=== PATIENT | female | born 1990 | race Caucasian/White ===

== ENCOUNTER 2017-02-26 10:23 | Outpatient (CLI) | payer MEDICAID ==
[2017-02-26 13:11] LABS: BASOPHILS % (AUTO) 0.5 %; EOSINOPHILS # (AUTO) 0.1 10^3/uL (0.0-0.7); EOSINOPHILS % (AUTO) 1.4 %; HCT - HEMATOCRIT 39.2 % (37.0-47.0); HGB - HEMOGLOBIN 13.5 g/dL (12.0-16.0); LYMPHOCYTES # (AUTO) 2.6 10^3/uL (1.5-3.5); LYMPHOCYTES % (AUTO) 38.1 %; MEAN CORPUSCULAR HEMOGLOBIN 30.2 pg (27.0-31.0); MEAN CORPUSCULAR HGB CONC 34.5 g/dL (32.0-36.0); MEAN CORPUSCULAR VOLUME 87.7 fL (81.0-99.0); MEAN PLATELET VOLUME 8.8 fL (7.9-10.8); MONOCYTES # (AUTO) 0.3 10^3/uL (0.0-1.0); MONOCYTES % (AUTO) 4.1 %; NEUTROPHILS # (AUTO) 3.7 10^3/uL (1.5-6.6); NEUTROPHILS % (AUTO) 55.9 %; RED BLOOD COUNT 4.47 10^6/uL (4.20-5.40); RED CELL DISTRIBUTION WIDTH 13.1 % (12.0-15.0); UNCORRECTED WHITE BLOOD COUNT 6.7 x10^3/uL; WHITE BLOOD COUNT 6.7 x10^3/uL (4.8-10.8)
[2017-02-26 13:20] LABS: ALBUMIN/GLOBULIN RATIO 1.3 (1.0-2.2); BILIRUBIN,TOTAL 0.7 mg/dL (0.2-1.0); CALCIUM 9.2 mg/dL (8.5-10.3); CREATININE 0.8 mg/dL (0.4-1.0); POTASSIUM 3.8 mmol/L (3.5-5.0); TOTAL PROTEIN 7.5 g/dL (6.7-8.2)
[2017-02-27 10:11] LABS: TEST RESULT REPORT (())
== END 2017-02-26 10:24 | disposition home or self-care (01) ==
LOC: LAB.N 10:23
PROVIDERS: ATTEND Physician Assistant
DX: Z11.3 Encounter for screening for infections with a predominantly sexual mode of transmission (principal)
CPT/HCPCS: 36415; 80053; 81599; 84443; 85025; 86803; 87389; 87491; 87591

== ENCOUNTER 2017-03-26 13:11 | Outpatient (CLI) | payer MEDICAID ==
--- NOTE | 2017-03-26 17:33 | Ultrasound Report ---
PELVIC ULTRASOUND: 03/26/2017 CLINICAL INDICATION: Pain. TECHNIQUE: Transabdominal pelvic ultrasound performed for global evaluation. Transvaginal pelvic ult rasound performed for detailed evaluation. Real-time scanning performed and static images obtained. FINDINGS: The uterus is anteverted, measuring 7.6 x 4.2 x 2.1 cm. The endometrial echo complex blanca ures 2 mm. The ovaries are normal, with the right measuring 2.2 x 1.1 x 0.9 cm, and the left measuri ng 2.3 x 2.1 x 1.2 cm. Trace free fluid is present in the cul-de-sac. IMPRESSION: NORMAL PELVIC ULTRASOUND. JOB #: [id number] EXT JOB #:[id number]
== END 2017-03-26 13:12 | disposition home or self-care (01) ==
LOC: DI 13:11
PROVIDERS: ATTEND Nurse Practitioner Gerontology
DX: R10.2 Pelvic and perineal pain (principal)
CPT/HCPCS: 76830; 76856

== ENCOUNTER 2017-07-13 13:35 | Emergency (ER) | payer MEDICAID ==
[2017-07-13 13:46] VITALS: BP 124/75
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
[2017-07-13 14:20] LABS: MUDS CUTOFF CONCENTRATIONS CUTOFF CONC BELOW:
[2017-07-13 14:46] LABS: AMPHETAMINE SCREEN,URINE NEGATIVE (NEGATIVE); BENZODIAZEPINES SCREEN, URINE NEGATIVE (NEGATIVE); COCAINE SCREEN URINE NEGATIVE (NEGATIVE); METHADONE SCREEN, URINE NEGATIVE (NEGATIVE); METHAMPHETAMINES SCREEN, URINE NEGATIVE (NEGATIVE); OPIATE SCREEN, URINE NEGATIVE (NEGATIVE); OXYCODONE SCREEN, URINE NEGATIVE (NEGATIVE); PROPOXYPHENE SCREEN, URINE NEGATIVE (NEGATIVE); TRICYCLIC ANTIDEPRESSANT,URINE NEGATIVE (NEGATIVE)
== END 2017-07-13 14:54 | disposition home or self-care (01) ==
LOC: ED 13:35
DX: R40.0 Somnolence (principal); T88.7XXA Unspecified adverse effect of drug or medicament, initial encounter
CPT/HCPCS: 80306; 99282; 99283

== ENCOUNTER 2018-09-10 20:39 | Emergency (ER) | payer MEDICAID ==
[2018-09-10] MEDS ORDERED: DEXAMETHASONE 10 MG/ML VIAL PO STA (21:34)
[2018-09-10] MEDS ORDERED: KETOROLAC 60 MG/2 ML VIAL IM STA (21:34)
[2018-09-10] MEDS ORDERED: KETOROLAC 30 MG/ML VIAL IVP STA (21:37)
--- NOTE | 2018-09-10 21:37 | ED Physician Documentation ---
PD HPI CHEST PAIN - Stated complaint Stated Complaint: CP - Chief complaint Chief Complaint: Resp - History obtained from History obtained from: Patient - History of Present Illness Timing - onset: Enter time (0800), Today Timing - onset during: Rest Timing - duration: Hours Timing - details: Abrupt onset, Still present Quality: Pressure, Sharp, Pain Location: Substernal Radiation: Back Improved by: Rest Worsened by: Inspiration Associated symptoms: Shortness of air. No: Diaphoresis, Nausea, Vomiting, Feeling faint / dizzy Similar symptoms before: Has not had sx before Recently seen: Not recently seen - Additional information Additional information: 27-year-old female awoke this morning with a cough and congestion and she had chest pain associated with this this morning. She states that she was able to get up and go to work. At 6 PM she took some DayQuil to try to relieve her symptoms did not get any relief with this she is come to the emergency department now with severe pain with each breath that she takes and she has become anxious with this. Review of Systems Constitutional: denies: Fever, Chills, Myalgias Eyes: denies: Decreased vision Ears: denies: Ear pain Nose: reports: Congestion. denies: Rhinorrhea / runny nose Throat: denies: Sore throat Cardiac: reports: Chest pain / pressure. denies: Palpitations, Pedal edema, Calf pain Respiratory: reports: Dyspnea, Cough GI: denies: Abdominal Pain, Nausea, Vomiting : denies: Dysuria, Frequency Skin: denies: Rash Musculoskeletal: denies: Neck pain, Back pain, Extremity pain Neurologic: denies: Generalized weakness, Focal weakness, Numbness PD PAST MEDICAL HISTORY - Past Medical History Past Medical History: Yes Cardiovascular: None Respiratory: None Endocrine/Autoimmune: None GI: None : None HEENT: None Psych: None Musculoskeletal: None Derm: None - Past Surgical History Past Surgical History: No - Present Medications Home Medications: Ambulatory Orders Medication Instructions Recorded Confirmed Ciprofloxacin HCl [Cipro] 500 mg PO BID 7 Days tablet 05/17/15 Metronidazole [Flagyl] 500 mg PO TID 7 Days tablet 05/17/15 Hydrocodone/Acetaminophen 1 - 2 each PO Q6H PRN #14 tablet 09/10/18 [Hydrocodon-Acetaminophen 5-325] - Allergies Allergies/Adverse Reactions: Allergies Allergy/AdvReac Type Severity Reaction Status Date / Time No Known Drug Allergies Allergy Verified 09/10/18 20:43 - Social History Does the pt smoke?: No Smoking Status: Never smoker Does the pt drink ETOH?: No Does the pt have substance abuse?: No - Immunizations Immunizations are current?: Yes - POLST Patient has POLST: No PD ED PE NORMAL - Vitals Vital signs reviewed: Yes (tachy) - General General: Alert and oriented X 3, Well developed/nourished, Other (appears to be in pain with each breath.) - HEENT HEENT: Atraumatic, PERRL, EOMI, Ears normal, Moist mucous membranes, Pharynx benign - Neck Neck: Supple, no meningeal sign, No bony TTP - Cardiac Cardiac: No murmur, Other (tachy to 120) - Respiratory Respiratory: Clear bilaterally, Other (tachypneic) - Abdomen Abdomen: Soft, Non tender - Back Back: No CVA TTP, No spinal TTP - Derm Derm: Normal color, Warm and dry, No rash - Extremities Extremities: No deformity, No edema - Neuro Neuro: Alert and oriented X 3, 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, No motor deficit, No sensory deficit, Normal speech Eye Opening: Spontaneous Motor: Obeys Commands Verbal: Oriented GCS Score: 15 - Psych Psych: Normal mood, Normal affect Results - Vitals Vitals: Vital Signs - 24 hr 09/10/18 09/10/18 09/10/18 20:40 20:57 21:57 Temperature 37.4 C Heart Rate 131 H 119 H 99 Respiratory 28 H 24 27 H Rate Blood Pressure 129/83 H 122/89 H O2 Saturation 98 100 100 09/10/18 23:00 Temperature Heart Rate 97 Respiratory 12 Rate Blood Pressure 132/84 H O2 Saturation 97 Oxygen O2 Source Room air - EKG (time done) 2300 Rate: Rate (enter#) (95) Rhythm: NSR (95) Ischemia: Normal ST segments Compare to prior EKG: Old EKG unavailable Computer interpretation: Agree with computer - Labs Labs: Laboratory Tests 09/10/18 09/10/18 09/10/18 21:00 21:00 21:00 WBC 7.1 RBC 4.26 Hgb 12.6 Hct 36.5 L MCV 85.8 MCH 29.6 MCHC 34.5 RDW 13.4 Plt Count 231 MPV 8.8 Neut # (Auto) 5.8 Lymph # (Auto) 0.9 L [place] # (Auto) 0.4 Eos # (Auto) 0.0 Baso # (Auto) 0.0 Absolute Nucleated RBC 0.00 Nucleated RBC % 0.0 D-Dimer Sodium 135 Potassium 3.3 L Chloride 102 Carbon Dioxide 19 L Anion Gap 14.0 H BUN 7 Creatinine 0.8 Estimated GFR (MDRD) 87 L Glucose 98 Calcium 9.2 Total Bilirubin 0.7 AST 26 ALT 20 Alkaline Phosphatase 42 Troponin I < 0.04 Total Protein 7.9 Albumin 4.2 Globulin 3.7 Albumin/Globulin Ratio 1.1 Lipase 24 09/10/18 21:00 WBC RBC Hgb Hct MCV MCH MCHC RDW Plt Count MPV Neut # (Auto) Lymph # (Auto) [place] # (Auto) Eos # (Auto) Baso # (Auto) Absolute Nucleated RBC Nucleated RBC % D-Dimer < 200.0 L Sodium Potassium Chloride Carbon Dioxide Anion Gap BUN Creatinine Estimated GFR (MDRD) Glucose Calcium Total Bilirubin AST ALT Alkaline Phosphatase Troponin I Total Protein Albumin Globulin Albumin/Globulin Ratio Lipase - Rads (name of study) 2 veiw chest Radiology: Prelim report reviewed (Impression: Normal two-view chest radiography.), EMP read indepedently, See rad report Procedures - IVC sono (time) 2248 Bedside IVC sono: IVC measures (cm) (1.09), IVC collapsed c insp (cm) (com plete), Dehydration (est 1 liter deficit) PD MEDICAL DECISION MAKING - ED course Complexity details: reviewed old records, reviewed results, re-evaluated patient, considered differential, d/w patient, d/w family ED course: 27-year-old female presented to the emergency department with acute substernal chest pain with respiration and she presents with significant pain and she is tachycardic. She has only one risk factor for pulmonary embolism and that is consumption of control pill. She is tachycardic she has normal saturation and her d-dimer is negative. She is dehydrated on interrogation of the inferior vena cava and she is administered intravenous saline. She does respond to administration of dexamethasone and Toradol intravenously for pain control and has some improvement. Her chest x-ray is clear. We will send her home with some medication for pain with a diagnosis of pleurisy. Departure - Departure Disposition: 01 Home, Self Care Clinical Impression: Pleurisy Condition: Stable Instructions: ED Chest Pain Pleurisy Follow-Up: Camila Guan ARNP [Primary Care Provider] - Prescriptions: Hydrocodone/Acetaminophen [Hydrocodon-Acetaminophen 5-325] 1 - 2 each PO Q6H PRN #14 tablet PRN Reason: pain Forms: Activity restrictions
[2018-09-10] MEDS ORDERED: DEXAMETHASONE 10 MG/ML VIAL IVP STA (21:38)
[2018-09-10 21:42] LABS: BASOPHILS % (AUTO) 0.5 %; EOSINOPHILS % (AUTO) 0.5 %; HGB - HEMOGLOBIN 12.6 g/dL (12.0-16.0); LYMPHOCYTES # (AUTO) 0.9 10^3/uL (1.5-3.5); LYMPHOCYTES % (AUTO) 12.2 %; MEAN CORPUSCULAR HEMOGLOBIN 29.6 pg (27.0-31.0); MEAN CORPUSCULAR HGB CONC 34.5 g/dL (32.0-36.0); MEAN CORPUSCULAR VOLUME 85.8 fL (81.0-99.0); MEAN PLATELET VOLUME 8.8 fL (7.9-10.8); MONOCYTES # (AUTO) 0.4 10^3/uL (0.0-1.0); MONOCYTES % (AUTO) 5.2 %; NEUTROPHILS # (AUTO) 5.8 10^3/uL (1.5-6.6); NEUTROPHILS % (AUTO) 81.6 %; PLT - PLATELET COUNT 231 10^3/uL (130-450); RED BLOOD COUNT 4.26 10^6/uL (4.20-5.40); RED CELL DISTRIBUTION WIDTH 13.4 % (12.0-15.0); WHITE BLOOD COUNT 7.1 x10^3/uL (4.8-10.8)
[2018-09-10 22:03] LABS: CALCIUM 9.2 mg/dL (8.5-10.3)
--- NOTE | 2018-09-10 22:08 | XRAY Report ---
Reason: cough central chest pain Procedure Date: 09/10/2018 Accession Number: [id number] / [id number] Procedure: XR - Chest 2 View X-Ray CPT Code: 75002 FULL RESULT: EXAM: CHEST RADIOGRAPHY EXAM DATE: 09/10/2018 09:51 PM. CLINICAL HISTORY: Cough central chest pain. COMPARISON: None. TECHNIQUE: 2 views. FINDINGS: Lungs/Pleura: No focal opacities evident. No pleural effusion. No pneumothorax. Normal volumes. Mediastinum: Heart and mediastinal contours are unremarkable. Other: None. IMPRESSION: Normal 2-view chest radiography. RAD[facility]
[2018-09-10 22:14] LABS: ALBUMIN 4.2 g/dL (3.2-5.5); ALBUMIN/GLOBULIN RATIO 1.1 (1.0-2.2); BILIRUBIN,TOTAL 0.7 mg/dL (0.2-1.0); CREATININE 0.8 mg/dL (0.4-1.0); TOTAL PROTEIN 7.9 g/dL (6.7-8.2)
[2018-09-10] MEDS ORDERED: SODIUM CHLORIDE 0.9% 1,000 ML IV ONE (22:54)
[2018-09-10] MEDS ORDERED: HYDROcod/ACET 5/325 Prepack 4 PO STA (23:27)
[2018-09-11 00:14] VITALS: BP 138/78
== END 2018-09-11 00:28 | disposition home or self-care (01) ==
LOC: ED 20:39
DX: R09.1 Pleurisy (principal); E86.0 Dehydration; R00.0 Tachycardia, unspecified
CPT/HCPCS: 36415; 71046; 80053; 83690; 84484; 85025; 85379; 93005; 96361; 96374; 99283; 99284

== ENCOUNTER 2018-09-21 08:00 | Outpatient (CLI) | payer MEDICAID ==
[2018-09-21 18:49] LABS: BASOPHILS % (AUTO) 0.5 %; EOSINOPHILS # (AUTO) 0.1 10^3/uL (0.0-0.7); EOSINOPHILS % (AUTO) 0.8 %; HGB - HEMOGLOBIN 13.2 g/dL (12.0-16.0); LYMPHOCYTES # (AUTO) 2.6 10^3/uL (1.5-3.5); MEAN CORPUSCULAR HEMOGLOBIN 29.3 pg (27.0-31.0); MEAN CORPUSCULAR HGB CONC 33.3 g/dL (32.0-36.0); MEAN CORPUSCULAR VOLUME 87.9 fL (81.0-99.0); MEAN PLATELET VOLUME 8.6 fL (7.9-10.8); MONOCYTES # (AUTO) 0.4 10^3/uL (0.0-1.0); MONOCYTES % (AUTO) 5.1 %; NEUTROPHILS # (AUTO) 4.6 10^3/uL (1.5-6.6); NEUTROPHILS % (AUTO) 59.6 %; PLT - PLATELET COUNT 303 10^3/uL (130-450); RED CELL DISTRIBUTION WIDTH 13.9 % (12.0-15.0); WHITE BLOOD COUNT 7.7 x10^3/uL (4.8-10.8)
[2018-09-21 19:08] LABS: ALBUMIN 4.2 g/dL (3.2-5.5); ALBUMIN/GLOBULIN RATIO 1.1 (1.0-2.2); BILIRUBIN,TOTAL 0.6 mg/dL (0.2-1.0); CALCIUM 9.1 mg/dL (8.5-10.3); CREATININE 0.7 mg/dL (0.4-1.0); TOTAL PROTEIN 7.9 g/dL (6.7-8.2)
[2018-09-21 19:27] LABS: THYROID STIMULATING HORMONE 1.03 uIU/mL (0.34-5.60)
[2018-09-21 19:34] LABS: FOLATE 14.67 ng/mL (5.90 - >24.8)
== END 2018-09-21 23:59 | disposition home or self-care (01) ==
LOC: LAB.N 08:00
PROVIDERS: ATTEND Nurse Practitioner
DX: R53.83 Other fatigue (principal); E55.9 Vitamin D deficiency, unspecified
CPT/HCPCS: 36415; 80053; 82306; 82607; 82746; 84443; 85025

== ENCOUNTER 2018-09-28 12:07 | Outpatient (CLI) | payer MEDICAID ==
--- NOTE | 2018-09-28 13:10 | XRAY Report ---
Reason: LUMBAGO Procedure Date: 09/28/2018 Accession Number: [id number] / [id number] Procedure: XRN - Lumbar Spine 2 View CPT Code: FULL RESULT: EXAM: LUMBOSACRAL SPINE RADIOGRAPHY EXAM DATE: 09/28/2018 12:24 PM. CLINICAL HISTORY: LUMBAGO. COMPARISONS: None. TECHNIQUE: 3 views. FINDINGS: Alignment: Normal. No spondylolisthesis or scoliosis. Bones: Five bkm-fjg-azldhnh lumbar vertebral bodies are present. No fractures or bone lesions. Disks: Normal. Disk heights are maintained. Facets: No degenerative changes. Sacroiliac Joints: Unremarkable. Soft Tissues: Normal. The visualized bowel gas pattern is normal. IMPRESSION: Normal lumbar spine radiography. RADIA
== END 2018-09-28 12:08 | disposition home or self-care (01) ==
LOC: DI.N 12:07
PROVIDERS: ATTEND Nurse Practitioner
DX: M54.5 Low back pain (principal)
CPT/HCPCS: 72100

== ENCOUNTER 2019-02-12 08:00 | Outpatient (CLI) | payer MEDICAID ==
[2019-02-12 22:01] LABS: TRICHOMONAS VAGINALIS DNA NEGATIVE (NEGATIVE)
[2019-02-15 14:52] LABS: HIV AG/AB 4TH GEN NON-REACTIVE (NON-REACTIVE)
== END 2019-02-12 23:59 | disposition home or self-care (01) ==
LOC: LAB.N 08:00
PROVIDERS: ATTEND Nurse Practitioner Gerontology
DX: Z11.3 Encounter for screening for infections with a predominantly sexual mode of transmission (principal)
CPT/HCPCS: 36415; 81599; 86592; 87389; 87491; 87591; 87661

== ENCOUNTER 2019-03-22 08:00 | Outpatient (CLI) | payer MEDICAID ==
[2019-03-22 23:22] LABS: CANDIDA GROUP DNA POSITIVE (NEGATIVE); CANDIDA KRUSEI DNA NEGATIVE (NEGATIVE); TRICHOMONAS VAGINALIS DNA NEGATIVE (NEGATIVE)
== END 2019-03-22 23:59 | disposition home or self-care (01) ==
LOC: LAB.R 08:00
PROVIDERS: ATTEND Nurse Practitioner Gerontology
DX: N89.8 Other specified noninflammatory disorders of vagina (principal)
CPT/HCPCS: 87661; 87801

== ENCOUNTER 2019-04-01 10:30 | Outpatient (CLI) | payer MEDICAID | END 2019-04-01 23:59 | disposition home or self-care (01) | LOC: LAB.R 10:30 | PROVIDERS: ATTEND Family Medicine | DX: N39.0 Urinary tract infection, site not specified (principal) | CPT/HCPCS: 87086 ==

== ENCOUNTER 2019-04-05 13:25 | Emergency (ER) | payer MEDICAID ==
[2019-04-05 13:54] LABS: BILIRUBIN,URINE NEGATIVE (NEGATIVE); GLUCOSE, URINE (UA) NEGATIVE (NEGATIVE); KETONES,URINE (UA) NEGATIVE (NEGATIVE); LEUKOCYTE ESTERASE, URINE TRACE (NEGATIVE); NITRITE,URINE NEGATIVE (NEGATIVE); OCCULT BLOOD,URINE TRACE-LYSE (NEGATIVE); PH,URINE 6.5 PH (5.0-7.5); PROTEIN,URINE NEGATIVE (NEGATIVE); UROBILINOGEN,URINE 0.2 (NORMAL) E.U./dL (NORMAL)
[2019-04-05 13:59] LABS: CLARITY,URINE CLEAR (CLEAR)
[2019-04-05 14:15] LABS: BACTERIA,URINE Rare /HPF (None Seen); RBC,URINE 0-5 /HPF (0-5); SQUAMOUS EPITHELIAL CELL,UR MOD Squamous (<= Few)
[2019-04-05 14:22] LABS: BASOPHILS # (AUTO) 0.1 10^3/uL (0.0-0.1); BASOPHILS % (AUTO) 1.1 %; EOSINOPHILS % (AUTO) 0.4 %; LYMPHOCYTES # (AUTO) 1.9 10^3/uL (1.5-3.5); LYMPHOCYTES % (AUTO) 26.7 %; MEAN CORPUSCULAR HEMOGLOBIN 29.6 pg (27.0-31.0); MEAN CORPUSCULAR HGB CONC 32.9 g/dL (32.0-36.0); MEAN CORPUSCULAR VOLUME 90.1 fL (81.0-99.0); MEAN PLATELET VOLUME 9.8 fL (7.9-10.8); MONOCYTES # (AUTO) 0.2 10^3/uL (0.0-1.0); MONOCYTES % (AUTO) 3.3 %; NEUTROPHILS # (AUTO) 4.9 10^3/uL (1.5-6.6); NEUTROPHILS % (AUTO) 68.2 %; PLT - PLATELET COUNT 305 10^3/uL (130-450); RED BLOOD COUNT 4.73 10^6/uL (4.20-5.40); RED CELL DISTRIBUTION WIDTH 12.3 % (12.0-15.0); WHITE BLOOD COUNT 7.2 x10^3/uL (4.8-10.8)
--- NOTE | 2019-04-05 14:32 | ED Physician Documentation ---
History of Present Illness - Stated complaint Stated Complaint: VOMITING/LUMP ON LT SIDE - Chief complaint Chief Complaint: Abd Pain - History obtained from History obtained from: Patient - History of Present Illness Timing: How many weeks ago (2) - Additonal information Additional information: This is a 28-year-old woman who presents with complaints that 2 weeks ago she started to have pain with urination and went into see her primary care provider she was diagnosed with bacterial vaginosis and placed on an antibiotic that caused her to start vomiting after 5 days so she went back to the doctor had some blood in the urine and they changed her antibiotic to Macrobid. That was 5 days ago however her urine culture came back negative. She started vomiting again this morning and felt a "lump" on the left lower abdomen. She is never had any abdominal surgeries and is never felt this before. She is continued to vomit and was sent here for evaluation. She has a bloody vaginal discharge her menstrual period is not due for another week and a half she denies stating she had a negative test and is on oral contraceptives. They screened her for gonorrhea and chlamydia at the primary care provider's office and those test results were negative. She denies fever. She denies sore throat, stuffy nose coughing or pain radiating down her legs. Review of Systems Constitutional: denies: Fever Respiratory: denies: Cough GI: reports: Abdominal Pain, Nausea, Vomiting. denies: Diarrhea : reports: Dysuria, Vaginal bleeding, Control. denies: Incontinent, Hematuria, Now EGA Neurologic: denies: Numbness, Syncope Endocrine: reports: Other (No diabetes) PD PAST MEDICAL HISTORY - Past Medical History Cardiovascular: None Respiratory: None Endocrine/Autoimmune: None GI: None : None HEENT: None Psych: None Musculoskeletal: None Derm: None - Past Surgical History Past Surgical History: No - Present Medications Home Medications: Ambulatory Orders Medication Instructions Recorded Confirmed Ciprofloxacin HCl [Cipro] 500 mg PO BID 7 Days tablet 05/17/15 Metronidazole [Flagyl] 500 mg PO TID 7 Days tablet 05/17/15 Hydrocodone/Acetaminophen 1 - 2 each PO Q6H PRN #14 tablet 09/10/18 [Hydrocodon-Acetaminophen 5-325] Polyethylene Glycol 3350 [Miralax] 17 gm PO DAILY #10 packet 04/05/19 - Allergies Allergies/Adverse Reactions: Allergies Allergy/AdvReac Type Severity Reaction Status Date / Time No Known Drug Allergies Allergy Verified 04/05/19 13:29 - Social History Does the pt smoke?: No Smoking Status: Never smoker Does the pt drink ETOH?: No Does the pt have substance abuse?: No - Immunizations Immunizations are current?: Yes - POLST Patient has POLST: No PD ED PE NORMAL - Vitals Vital signs reviewed: Yes - General General: Alert and oriented X 3, No acute distress, Well developed/nourished, Other (Holding an emesis bag) - HEENT HEENT: Atraumatic, PERRL, Moist mucous membranes, Other (No scleral icterus) - Neck Neck: No adenopathy, Thyroid normal - Cardiac Cardiac: RRR, No murmur, Strong equal pulses - Respiratory Respiratory: No respiratory distress, Clear bilaterally - Abdomen Abdomen: Normal bowel sounds, Soft, Other (Pain in the suprapubic and left lower quadrant. There was a tender firm palpable mass along the left lower quadrant) - Derm Derm: Normal color, No rash - Extremities Extremities: No edema - Neuro Neuro: Alert and oriented X 3, Other (No gross neurological deficits) Results - Vitals Vitals: Vital Signs - 24 hr 04/05/19 04/05/19 04/05/19 13:29 15:08 17:58 Temperature 37.4 C Heart Rate 95 64 82 Respiratory 15 16 18 Rate Blood Pressure 120/72 115/79 117/68 O2 Saturation 100 99 99 04/05/19 04/05/19 04/05/19 19:11 19:51 20:04 Temperature 36.8 C Heart Rate 91 78 91 Respiratory 18 16 16 Rate Blood Pressure 108/76 113/59 L 111/72 O2 Saturation 99 98 97 Oxygen O2 Source Room air - Labs Labs: Laboratory Tests 04/05/19 04/05/19 04/05/19 13:40 13:40 14:15 WBC 7.2 RBC 4.73 Hgb 14.0 Hct 42.6 MCV 90.1 MCH 29.6 MCHC 32.9 RDW 12.3 Plt Count 305 MPV 9.8 Neut # (Auto) 4.9 Lymph # (Auto) 1.9 [place] # (Auto) 0.2 Eos # (Auto) 0.0 Baso # (Auto) 0.1 Absolute Nucleated RBC 0.00 Nucleated RBC % 0.0 Sodium Potassium Chloride Carbon Dioxide Anion Gap BUN Creatinine Estimated GFR (MDRD) Glucose Calcium Total Bilirubin AST ALT Alkaline Phosphatase Total Protein Albumin Globulin Albumin/Globulin Ratio Lipase Urine Color YELLOW Urine Clarity CLEAR Urine pH 6.5 Ur Specific [place] <=1.005 <=1.005 Urine Protein NEGATIVE Urine Glucose (UA) NEGATIVE Urine Ketones NEGATIVE Urine Occult Blood TRACE-LYSE Urine Nitrite NEGATIVE Urine Bilirubin NEGATIVE Urine Urobilinogen 0.2 (NORMAL) Ur Leukocyte Esterase TRACE H Urine RBC 0-5 Urine WBC 0-3 Ur Squamous Epith Cells MOD Squamous H Urine Bacteria Rare Ur Microscopic Review INDICATED Urine Culture Comments NOT INDICATED Urine HCG, Qual NEGATIVE Chlam trachomat DNA PCR N.gonorrhoeae DNA (PCR) T. vaginalis (PCR) 04/05/19 04/05/19 14:15 16:45 WBC RBC Hgb Hct MCV MCH MCHC RDW Plt Count MPV Neut # (Auto) Lymph # (Auto) [place] # (Auto) Eos # (Auto) Baso # (Auto) Absolute Nucleated RBC Nucleated RBC % Sodium 140 Potassium 3.6 Chloride 103 Carbon Dioxide 28 Anion Gap 9.0 BUN 8 Creatinine 0.8 Estimated GFR (MDRD) 87 L Glucose 119 H Calcium 9.4 Total Bilirubin 0.4 AST 17 ALT 13 Alkaline Phosphatase 47 Total Protein 8.3 H Albumin 4.4 Globulin 3.9 Albumin/Globulin Ratio 1.1 Lipase 31 Urine Color Urine Clarity Urine pH Ur Specific [place] Urine Protein Urine Glucose (UA) Urine Ketones Urine Occult Blood Urine Nitrite Urine Bilirubin Urine Urobilinogen Ur Leukocyte Esterase Urine RBC Urine WBC Ur Squamous Epith Cells Urine Bacteria Ur Microscopic Review Urine Culture Comments Urine HCG, Qual Chlam trachomat DNA PCR NEGATIVE N.gonorrhoeae DNA (PCR) NEGATIVE T. vaginalis (PCR) NEGATIVE - Rads (name of study) ct abd/pelvis Radiology: See rad report PD MEDICAL DECISION MAKING - ED course Complexity details: reviewed results, re-evaluated patient, d/w patient, d/w family ED course: Patient initially had some relief of her pain with Dilaudid and Zofran. CBC was negative urinalysis was negative. I ended up doing a pelvic exam that showed a little bit of bloody mucousy yellow discharge in the vaginal vault. I did collect specimen for GC and chlamydia. CT scan of the abdomen and pelvis showed significant stool loading but no acute abnormality to explain the patient's pain. She did not have any emesis here in the department but stated that the pain was starting to come back so she was medicated with Toradol and additional dose Zosyn of Zofran. Will trial a p.o. challenge and plan to discharge home with laxative and follow-up if continued pain. At this time I do not see an indication for surgical abdomen. Departure - Departure Disposition: Home, Self Care Clinical Impression: Abdominal pain Qualifiers: Abdominal location: left lower quadrant Qualified Code(s): R10.32 - Left lower quadrant pain Condition: Good Instructions: ED Abdominal Pain Unkn Cause Follow-Up: Camila Guan ARNP [Primary Care Provider] - Prescriptions: Polyethylene Glycol 3350 [Miralax] 17 gm PO DAILY #10 packet Comments: Take the MiraLAX daily as prescribed. May take Tylenol or ibuprofen for the pain. Follow-up with your primary care provider if the pain persists. Return if you have increasing pain, develop vomiting and cannot keep anything down, develop fever or other problems arise. Discharge Date/Time: 04/05/19 20:18
[2019-04-05 14:53] LABS: ALBUMIN 4.4 g/dL (3.2-5.5); ALBUMIN/GLOBULIN RATIO 1.1 (1.0-2.2); BILIRUBIN,TOTAL 0.4 mg/dL (0.2-1.0); CALCIUM 9.4 mg/dL (8.5-10.3); CREATININE 0.8 mg/dL (0.4-1.0); TOTAL PROTEIN 8.3 g/dL (6.7-8.2)
[2019-04-05] MEDS ORDERED: IOVERSOL 320 100 ML VIAL IVP ONE ×2 (15:05→16:05)
[2019-04-05 15:12] LABS: HCG UR QUAL NEGATIVE
[2019-04-05] MEDS ORDERED: ONDANSETRON 4 MG/2 ML VIAL IVP STA ×2 (15:17→17:38)
[2019-04-05] MEDS ORDERED: HYDROmorphone 2 MG/ML VIAL IVP STA (15:17)
--- NOTE | 2019-04-05 15:56 | CT Report ---
Reason: Pain LLQ with firm, tender mass Procedure Date: 04/05/2019 Accession Number: [id number] / [id number] Procedure: CT - Abdomen/Pelvis W CPT Code: FULL RESULT: EXAM: CT ABDOMEN AND PELVIS EXAM DATE: 04/05/2019 03:27 PM. CLINICAL HISTORY: Left lower quadrant pain with firm and tender mass. COMPARISONS: ABDOMEN/PELVIS W/ 04/19/2015 1:07 AM. TECHNIQUE: Routine helical CT imaging was performed through the abdomen and pelvis. IV contrast: 80 cc Optiray 320. Enteric contrast: No. Reconstructions: Coronal and sagittal. In accordance with CT protocol optimization, one or more of the following dose reduction techniques were utilized for this exam: automated exposure control, adjustment of mA and/or KV based on patient size, or use of iterative reconstructive technique. FINDINGS: Imaged chest: Unremarkable. Liver: Unremarkable. Gallbladder: Unremarkable. Biliary: Unremarkable. Pancreas: Unremarkable. Spleen: Unremarkable. Adrenal glands: Unremarkable. Kidneys: Unremarkable. Urinary bladder: Unremarkable. Reproductive organs: Unremarkable. Bowel: Large volume of stool throughout the colon. The bowel is otherwise unremarkable. Stomach: Unremarkable. Appendix: Unremarkable. Miscellaneous: No free fluid. No extraluminal gas. Aorta: No significant aortic atherosclerosis. Normal in caliber. Lymph nodes: No pathologically enlarged lymph nodes identified. Bones: No acute fracture. No suspicious osseous lesions. Sidewalls: Unremarkable. IMPRESSION: 1. No acute findings to explain patient's symptoms. 2. Large volume of stool throughout the colon. Correlate clinically for constipation. [facility]
[2019-04-05] MEDS ORDERED: KETOROLAC 30 MG/ML VIAL IVP STA (17:38)
[2019-04-05] MEDS ORDERED: MORPHINE 2 MG/ML CARPUJECT IVP STA (19:44)
[2019-04-05 20:05] VITALS: BP 111/72
[2019-04-05 22:16] LABS: TRICHOMONAS VAGINALIS DNA NEGATIVE (NEGATIVE)
== END 2019-04-05 20:18 | disposition home or self-care (01) ==
LOC: ED 13:25
DX: R10.32 Left lower quadrant pain (principal); R19.04 Left lower quadrant abdominal swelling, mass and lump; R11.2 Nausea with vomiting, unspecified
CPT/HCPCS: 36415; 74177; 80053; 81001; 81025; 83690; 85025; 87491; 87591; 87661; 96374; 96375; 96376; 99284; 99285; J1170; Q9967; 81003; 87086

== ENCOUNTER 2019-05-04 19:09 | Emergency (ER) | payer MEDICAID ==
[2019-05-04] MEDS ORDERED: ONDANSETRON 4 MG/2 ML VIAL IVP STA (20:17)
[2019-05-04] MEDS ORDERED: SODIUM CHLORIDE 0.9% 1,000 ML IV ONE ×2 (20:17→21:21)
[2019-05-04 20:32] LABS: BASOPHILS # (AUTO) 0.1 10^3/uL (0.0-0.1); BASOPHILS % (AUTO) 0.4 %; EOSINOPHILS # (AUTO) 0.1 10^3/uL (0.0-0.7); EOSINOPHILS % (AUTO) 0.3 %; HGB - HEMOGLOBIN 13.1 g/dL (12.0-16.0); LYMPHOCYTES # (AUTO) 1.3 10^3/uL (1.5-3.5); LYMPHOCYTES % (AUTO) 6.6 %; MEAN CORPUSCULAR HGB CONC 34.3 g/dL (32.0-36.0); MEAN CORPUSCULAR VOLUME 87.4 fL (81.0-99.0); MEAN PLATELET VOLUME 10.2 fL (7.9-10.8); MONOCYTES # (AUTO) 0.7 10^3/uL (0.0-1.0); MONOCYTES % (AUTO) 3.6 %; NEUTROPHILS # (AUTO) 16.9 10^3/uL (1.5-6.6); NEUTROPHILS % (AUTO) 88.5 %; PLT - PLATELET COUNT 235 10^3/uL (130-450); RED BLOOD COUNT 4.37 10^6/uL (4.20-5.40); RED CELL DISTRIBUTION WIDTH 12.5 % (12.0-15.0); WHITE BLOOD COUNT 19.1 x10^3/uL (4.8-10.8)
[2019-05-04] MEDS ORDERED: KETOROLAC 30 MG/ML VIAL IVP STA (20:37)
[2019-05-04 20:43] LABS: ALBUMIN 4.3 g/dL (3.2-5.5); ALBUMIN/GLOBULIN RATIO 1.1 (1.0-2.2); BILIRUBIN,TOTAL 0.8 mg/dL (0.2-1.0); CALCIUM 9.2 mg/dL (8.5-10.3); CREATININE 0.9 mg/dL (0.4-1.0); TOTAL PROTEIN 8.2 g/dL (6.7-8.2)
--- NOTE | 2019-05-04 21:58 | ED Physician Documentation ---
PD HPI NVD - Stated complaint Stated Complaint: FEVER, N/V, BODY ACHES - Chief complaint Chief Complaint: Abd Pain - History obtained from History obtained from: Patient, Family - History of Present Illness Timing - onset: Yesterday Timing - duration: Days (2) Timing - details: Gradual onset Pain level max: 7 Pain level now: 5 Associated symptoms: Abdominal pain. No: Fever Contributing factors: No: Sick contact, Bad food, Travel, Recent antibiotics, Alcohol use, Anticoagulated, Diabetes Improved by: Vomiting Worsened by: Eating Similar symptoms before: Has not had sx before Recently seen: Not recently seen Review of Systems Constitutional: denies: Fever, Chills Respiratory: denies: Cough GI: reports: Abdominal Pain (crampy), Nausea, Vomiting, Diarrhea. denies: Hematemesis, Bloody / black stool : denies: Dysuria, Frequency, Hesitancy, Now [facility] PD PAST MEDICAL HISTORY - Past Medical History Past Medical History: No Cardiovascular: None Respiratory: None Neuro: None Endocrine/Autoimmune: None GI: None CURTAIN STITCHER: None : None HEENT: None Psych: Depression, Anxiety Musculoskeletal: None Derm: None - Past Surgical History Past Surgical History: No - Present Medications Home Medications: Ambulatory Orders Medication Instructions Recorded Confirmed Ciprofloxacin HCl [Cipro] 500 mg PO BID 7 Days tablet 05/17/15 Metronidazole [Flagyl] 500 mg PO TID 7 Days tablet 05/17/15 Hydrocodone/Acetaminophen 1 - 2 each PO Q6H PRN #14 tablet 09/10/18 [Hydrocodon-Acetaminophen 5-325] Polyethylene Glycol 3350 [Miralax] 17 gm PO DAILY #10 packet 04/05/19 Ondansetron Odt [Zofran] 4 mg TL Q6H PRN #10 tablet 05/04/19 - Allergies Allergies/Adverse Reactions: Allergies Allergy/AdvReac Type Severity Reaction Status Date / Time No Known Drug Allergies Allergy Verified 04/05/19 13:29 - Social History Does the pt smoke?: No Smoking Status: Never smoker Does the pt drink ETOH?: No Does the pt have substance abuse?: Yes Substance Use and Type: Marijuana - Immunizations Immunizations are current?: Yes - POLST Patient has POLST: No PD ED PE NORMAL - Vitals Vital signs reviewed: Yes - General General: Alert and oriented X 3, No acute distress, Well developed/nourished - HEENT HEENT: Moist mucous membranes - Neck Neck: Supple, no meningeal sign - Cardiac Cardiac: RRR, Strong equal pulses - Respiratory Respiratory: No respiratory distress, Clear bilaterally - Abdomen Abdomen: Soft, Non distended, Other (Mild diffuse tenderness palpation. No peritoneal signs.) - Back Back: No CVA TTP - Derm Derm: Warm and dry, No rash - Extremities Extremities: No edema - Neuro Neuro: Alert and oriented X 3 - Psych Psych: Normal mood, Normal affect Results - Vitals Vitals: Vital Signs - 24 hr 05/04/19 05/04/19 05/04/19 19:27 21:17 23:07 Temperature 36.8 C 36.9 C 37.1 C Heart Rate 78 51 L 81 Respiratory 18 16 18 Rate Blood Pressure 108/66 124/77 100/66 O2 Saturation 100 100 98 Oxygen O2 Source Room air - Labs Labs: Laboratory Tests 05/04/19 05/04/19 20:25 20:25 WBC 19.1 H RBC 4.37 Hgb 13.1 Hct 38.2 MCV 87.4 MCH 30.0 MCHC 34.3 RDW 12.5 Plt Count 235 MPV 10.2 Neut # (Auto) 16.9 H Lymph # (Auto) 1.3 L [place] # (Auto) 0.7 Eos # (Auto) 0.1 Baso # (Auto) 0.1 Absolute Nucleated RBC 0.00 Nucleated RBC % 0.0 Sodium 137 Potassium 3.9 Chloride 99 L Carbon Dioxide 23 Anion Gap 15.0 H BUN 9 Creatinine 0.9 Estimated GFR (MDRD) 76 L Glucose 230 H Calcium 9.2 Total Bilirubin 0.8 AST 22 ALT 17 Alkaline Phosphatase 45 Total Protein 8.2 Albumin 4.3 Globulin 3.9 Albumin/Globulin Ratio 1.1 Lipase 24 PD MEDICAL DECISION MAKING - ED course Complexity details: reviewed results, re-evaluated patient, considered differential, d/w patient, d/w family ED course: 28-year-old female is well-appearing, nontoxic. Afebrile. Feels better after Zofran and Phenergan. Given IV fluids. Abdomen is soft, nontender nondistended on serial exam. Appears to be a viral gastroenteritis. Urinalysis is pending, will follow this up and if it is positive, we will call the patient. No evidence of appendicitis, bowel perforation, peritonitis, bowel obstruction. No vaginal bleeding or discharge. Patient counseled regarding signs and symptoms for which I believe and urgent re-evaluation would be necessary. Patient with good understanding of and agreement to plan and is comfortable going home at this time This document was made in part using voice recognition software. While efforts are made to proofread this document, sound alike and grammatical errors may occur. Departure - Departure Disposition: 01 Home, Self Care Clinical Impression: Viral gastroenteritis Condition: Good Instructions: ED Gastroenteritis Viral Follow-Up: Camila Guan ARNP [Primary Care Provider] - Within 1 week Prescriptions: Ondansetron Odt [Zofran] 4 mg TL Q6H PRN #10 tablet PRN Reason: Nausea / Vomiting Comments: Go home and rest. Drink plenty of fluids. Return if you worsen.
[2019-05-04] MEDS ORDERED: PROMETHAZINE INJ 25 MG in SODIUM CHLORIDE 0.9% 50 ML IV STA (22:15)
[2019-05-04 23:08] VITALS: BP 100/66
[2019-05-04 23:28] LABS: GLUCOSE, URINE (UA) NEGATIVE (NEGATIVE); KETONES,URINE (UA) >=80 mg/dL (NEGATIVE); LEUKOCYTE ESTERASE, URINE NEGATIVE (NEGATIVE); NITRITE,URINE NEGATIVE (NEGATIVE); OCCULT BLOOD,URINE TRACE-INTA (NEGATIVE); PH,URINE 5.5 PH (5.0-7.5); PROTEIN,URINE TRACE mg/dL (NEGATIVE); UROBILINOGEN,URINE 0.2 (NORMAL) E.U./dL (NORMAL)
[2019-05-04 23:31] LABS: CLARITY,URINE CLEAR (CLEAR)
[2019-05-04 23:33] LABS: BILIRUBIN,URINE NEGATIVE (NEGATIVE); ICTOTEST,URINE NEGATIVE
[2019-05-04 23:38] LABS: HCG UR QUAL NEGATIVE
== END 2019-05-04 23:32 | disposition home or self-care (01) ==
LOC: ED 19:09
DX: A08.4 Viral intestinal infection, unspecified (principal)
CPT/HCPCS: 36415; 80053; 81003; 81025; 83690; 85025; 96361; 96365; 96375; 99284; J7040; 81001; 87086